=== PATIENT | female | born 1985 | race Caucasian/White ===

== ENCOUNTER → 2017-09-11 | Outpatient (CLI) | payer OTHER ==
[2017-09-11 15:55] VITALS: BMI 31.8
== END | disposition home or self-care (01) ==
LOC: MNTWWP 15:28
PROVIDERS: ATTEND Obstetrics & Gynecology
DX: E66.9 Obesity, unspecified (principal); Z68.33 Body mass index [BMI] 33.0-33.9, adult
CPT/HCPCS: 97802

== ENCOUNTER 2019-04-25 11:16 | Emergency (ER) | payer OTHER ==
[2019-04-25 11:24] VITALS: RESP 18
[2019-04-25] MEDS ORDERED: SODIUM CHLORIDE 0.9% 1,000 ML IV STA (11:41)
[2019-04-25] MEDS ORDERED: MORPHINE SULFATE 4 MG/ML SYRINGE IV STA (11:41)
--- NOTE | 2019-04-25 11:43 | ED ---
Chest Pain HPI - General Chief Complaint: Chest Pain Stated Complaint: Chest pain Time Seen by Provider: 04/25/19 11:32 Source: patient, RN notes reviewed, old records reviewed Mode of arrival: wheelchair Limitations: no limitations - History of Present Illness Initial Comments: This is a 33-year-old female the ER for evaluation patient resents today for evaluation chest pain left-sided chest patient began with for about a month. Pain is been manageable until yesterday and last night which became severe worse when she takes a deep breath. No history of smoking no history of COPD no history of asthma. No history of trauma. No fevers, no cough. No she does complain of shortness of breath especially when taking a deep breath. She does have chest wall tenderness underneath left breast. No difficulty eating no abdominal pain. No recent waking or weight loss. Patient takes no medications denies drugs denies smoking MD Complaint: chest pain (Sided) -: month(s) (Worse times the last day) Onset: during rest, during exertion, other (She takes deep breath) Pain Location: left chest Pain Radiation: none Severity: moderate Severity scale (1-10): 6 Quality: sharp Consistency: intermittent Improves With: nothing Worsens With: inspiration Anginal Symptoms: dyspnea Treatments Prior to Arrival: none - Related Data Home Medications Medication Instructions Recorded Confirmed Ibuprofen [Advil] 400 mg PO Q8HR PRN 04/25/19 04/25/19 Allergies Allergy/AdvReac Type Severity Reaction Status Date / Time No Known Allergies Allergy Verified 04/25/19 11:42 Review of Systems ROS Statement: Those systems with pertinent positive or pertinent negative responses have been documented in the HPI. ROS Other: All systems not noted in ROS Statement are negative. EKG Findings - EKG Comments: EKG Findings:: EKG shows sinus rhythm rate of 65, RI 176, QRS 82, QTc 409 Past Medical History Past Medical History: Skin Disorder History of Any Multi-Drug Resistant Organisms: None Reported Past Surgical History: Breast Surgery Past Anesthesia/Blood Transfusion Reactions: No Reported Reaction Past Psychological History: No Psychological Hx Reported Smoking Status: Never smoker Past Alcohol Use History: None Reported Past Drug Use History: None Reported - Past Family History Mother Family Medical History: Hyperlipidemia, Hypertension General Exam Limitations: no limitations General appearance: alert, in no apparent distress Head exam: Present: atraumatic, normocephalic, normal inspection Eye exam: Present: normal appearance, PERRL, EOMI. Absent: scleral icterus, conjunctival injection, periorbital swelling ENT exam: Present: normal exam, mucous membranes moist Neck exam: Present: normal inspection. Absent: tenderness, meningismus, lymphadenopathy Respiratory exam: Present: normal lung sounds bilaterally. Absent: respiratory distress, wheezes, rales, rhonchi, stridor Cardiovascular Exam: Present: regular rate, normal rhythm, normal heart sounds, other (Left breast wall tenderness). Absent: systolic murmur, diastolic murmur, rubs, gallop, clicks GI/Abdominal exam: Present: soft, normal bowel sounds. Absent: distended, tenderness, guarding, rebound, rigid Extremities exam: Present: normal inspection, full ROM, normal capillary refill. Absent: tenderness, pedal edema, joint swelling, calf tenderness Back exam: Present: normal inspection, other (rash to back, candidal) Neurological exam: Present: alert, oriented X3, CN II-XII intact Psychiatric exam: Present: normal mood, depressed, anxious Skin exam: Present: warm, dry, intact, normal color. Absent: rash Course Vital Signs 04/25/19 11:19 Temperature 98.1 F Pulse Rate 74 Respiratory 18 Rate Blood Pressure 104/70 O2 Sat by Pulse 97 Oximetry - Reevaluation(s) Reevaluation #1: 04/25/19 12:26 Medical record is reviewed Reevaluation #2: 04/25/19 13:09 Patient distress no specific pain currently Reevaluation #3: 04/25/19 13:09 Spoke with family and patient regarding findings, questions are answered Chest Pain MDM - MDM 23 female the ER for evaluation of chest pain left-sided chest pain. CT is negative for PE or significant pathology, does have mild pneumonitis. Patient given steroids here in the ER will continue on anti-inflammatories at home Disposition Clinical Impression: Atypical chest pain, Acute pneumonitis Disposition: HOME SELF-CARE Condition: Good Instructions (If sedation given, give patient instructions): Pneumonitis (ED) Is patient prescribed a controlled substance at d/c from ED?: No Referrals: Colin Carlin MD [Primary Care Provider] - 1-2 days
[2019-04-25 12:14] LABS: Basophils % (A) 1 %; Eosinophils # (A) 0.2 k/uL (0-0.7); Eosinophils % (A) 3 %; HCT 42.8 % (34.0-46.0); HGB 14.5 gm/dL (11.4-16.0); Lymphocytes # (A) 1.8 k/uL (1.0-4.8); Lymphocytes % (A) 26 %; MCH 30.7 pg (25.0-35.0); MCHC 33.8 g/dL (31.0-37.0); MCV 90.8 fL (80.0-100.0); Mean Platelet Volume 7.3; Monocytes # (A) 0.3 k/uL (0-1.0); Monocytes % (A) 4 %; Neutrophils # (A) 4.4 k/uL (1.3-7.7); Neutrophils % (A) 65 %; Platelet Count 268 k/uL (150-450); RBC 4.72 m/uL (3.80-5.40); RDW 15.4 % (11.5-15.5); WBC 6.8 k/uL (3.8-10.6)
[2019-04-25 12:23] LABS: ALT 34 U/L (9-52); AST 22 U/L (14-36); African American GFR (CKD) >90 (>60 ml/min/1.73 sqM); Albumin 4.3 g/dL (3.5-5.0); Alkaline Phosphatase 83 U/L (38-126); Anion Gap 9 mmol/L; Blood Urea Nitrogen 11 mg/dL (7-17); Calcium 9.5 mg/dL (8.4-10.2); Carbon Dioxide 25 mmol/L (22-30); Chloride 107 mmol/L (98-107); Glucose 85 mg/dL (74-99); Magnesium 2.1 mg/dL (1.6-2.3); Potassium 4.2 mmol/L (3.5-5.1); Sodium 141 mmol/L (137-145); Total Bilirubin 0.4 mg/dL (0.2-1.3); Total Protein 7.4 g/dL (6.3-8.2)
[2019-04-25 12:24] LABS: Partial Thromboplastin Time 24.6 sec (22.0-30.0); Prothrombin Time 10.7 sec (9.0-12.0)
--- NOTE | 2019-04-25 12:47 | CT ---
EXAMINATION TYPE: CT angio chest, CT abdomen pelvis w con DATE OF EXAM: 04/25/2019 12:25 PM COMPARISON: HISTORY: chest pain with respiration CT DLP: 1377.8 mGycm Automated exposure control for dose reduction was used. CONTRAST: CTA scan of the thorax as well as CT of the abdomen and pelvis is performed with IV Contrast, patient injected with 100 mL of Isovue 370, pulmonary embolism protocol. No wall contrast utilized.. FINDINGS: There are bilateral breast implants in place. There are scattered groundglass opacities in the periphery of both lungs slightly greater on the left than the right. This may represent pneumonitis. Hypersensitivity pneumonitis could give a similar ap pearance. There is no significant axillary, internal mammary, mediastinal or hilar adenopathy. There is no evidence of pulmonary embolus. The aorta is normal in caliber without evidence of dissection. Heart size upper limits of normal. There is no pleural or pericardial fluid. Within the abdomen, the liver and gallbladder appear normal. The spleen is mildly prominent measuring 13.4 cm. Both adrenal glands appear normal. There is a 1 cm low attenuating lesion in the upper pole of the left kidney likely reflecting a small cyst. The kidneys are otherwise normal. Pancreas is unremarkable. There is no significant para-aortic, iliac or inguinal adenopathy. The bladder is unremarkable. The uterus and ovaries are normal. There is follicular change within the ovaries. There is no significant diverticular change and there is no radiographic evidence of diverticulitis. The appendix is normal. The sigmoid colon and much of the descending colon is collapsed making assess ment of the bowel wall difficult. Small bowel loops are normal caliber. There is no free fluid and no free air. IMPRESSION: 1. SCATTERED GROUNDGLASS OPACITIES THROUGHOUT THE LUNGS MAY REPRESENT ALVEOLITIS. PNEUMONITIS IS ALSO A POSSIBILITY. 2. NO EVIDENCE OF PULMONARY EMBOLUS. 3. COLLAPSE OF MUCH OF THE LEFT SIDE OF THE COLON MAKES ASSESSMENT OF BOWEL WALL DIFFICULT. PLEASE CO RRELATE TO EXCLUDE COLITIS. 4. BORDERLINE SPLENOMEGALY. 5. PROBABLE CYST IN THE UPPER POLE OF THE LEFT KIDNEY.
[2019-04-25] MEDS ORDERED: DEXAMETHASONE SOD PHOSPHATE 10 MG/ML 1 ML VIAL IV STA (12:52)
[2019-04-25] MEDS ORDERED: KETOROLAC 30 MG/ML 1 ML VIAL IVP STA (12:52)
[2019-04-25] MEDS ORDERED: IPRATROPIUM-ALBUTEROL 3 ML NEB INHALATION STA (12:52)
[2019-04-25 13:59] VITALS: BP 108/72; TEMP 98
[2019-04-25 14:08] VITALS: PULSE 62
== END 2019-04-25 14:19 | disposition home or self-care (01) ==
LOC: EC 11:16
DX: J18.9 Pneumonia, unspecified organism (principal)
CPT/HCPCS: 36415; 94640; 93005; 83880; 80053; 83690; 83735; 84484; 85025; 85610; 85730; 71275; 74177; 99285; 96374; 96375 ×2; 96361 ×2; J2270; J1100; J1885; Q9967

== ENCOUNTER → 2019-05-05 | Outpatient (CLI) | payer OTHER ==
--- NOTE | 2019-05-05 12:35 | CONS ---
CONSULTATION DATE OF SERVICE: 05/05/2019 A 33-year-old lady who has been evaluated in the [facility] for multiple awakenings from sleep and feeling tiredness during the day. HISTORY OF PRESENT ILLNESS/SLEEP-WAKE EVALUATION: Patient's usual sleep schedule from around 10 p.m. to 6:30 a.m. and on some days is from around midnight until 8:30 a.m. She has to 2 small children at the house which I am subsequently sure sleep schedule related to their sleep schedule. They sleep in the same room and patient wakes up from sleep numerous time around 2 to 3 and after awakenings from sleep, she has difficulties to initiate sleep again. At the beginning of the night when she goes to bed, usually there are no problems with falling asleep, although she has TV set in bedroom. She has episodes of nocturia maybe once. No history of hypnagogic hallucinations, sleep paralysis. In the morning patient wakes up tired, feeling episodes of depression, worried about her sleep, has also episodes of anxiety. Usually does not take any naps. She drinks about one cup of coffee a day. [place] Sleepiness Scale is 2. PAST MEDICAL HISTORY: Positive for recent episode of chest pain. Evaluation in the hospital showed some abnormalities in her left lung according to the patient. PAST SURGICAL HISTORY: None. FAMILY HISTORY: Positive for hypertension. SOCIAL HISTORY: Negative for smoking or using alcohol. REVIEW OF SYSTEMS: Awakenings from sleep. It is difficult to initiate sleep. Again, tiredness and sleepiness in the morning. PHYSICAL EXAM: Presently without distress. BP 97/68, HR 73, RR 16, height 5, 3-3/4, weight 186.0 pounds, body mass index 32, temperature 97.9, oxygen saturation at room air 99%. OROPHARYNX: Wide pillars. ABDOMEN: Slightly obese. Neck Supple, no JVD. Thyroid is not palpable. LUNGS Clear to percussion and to auscultation. Good air exchange. No wheezing or rhonchi. HEART S1, S2 regular. No murmurs, gallops, or rubs. EXTREMITIES No clubbing or cyanosis. [employer] Awake, alert, and oriented X3. Cranial nerves 2 to 7 intact. There is no fasciculation or atrophy. noted. No focal deficits observed. IMPRESSION: 1. Multiple awakenings from sleep with difficulties to initiate sleep, again wide pillars, slightly small oropharyngeal space. Rule out obstructive sleep apnea. 2. Obesity, body mass index 32.0. 3. Recent episode of starting chest pain on the left side. Evaluation in the hospital according to patient, showed some enlargement of the left lung .. PLAN: 1. Polysomnography for evaluation of patient's breathing during sleep. 2. CPAP/BiPAP titration if sleep study confirms obstructive sleep apnea-hypopnea syndrome. 3. Preferable position during sleep on the side. 4. No driving if patient feels any sleepiness. 5. I will see patient for follow up visit to explain results of testing and following plan. Thank you very much for referring this patient for consultation. Sincerely, Bandar Sanchez MD, PhD, FAASM Diplomat of [place] [employer] [place] [employer] [facility] [place] [id number] / MEREDITH: [id number] /
== END ==
LOC: SLEEP 11:26
PROVIDERS: ATTEND Internal Medicine
DX: G47.8 Other sleep disorders (principal); E66.9 Obesity, unspecified; R07.9 Chest pain, unspecified; J98.4 Other disorders of lung; Z68.32 Body mass index [BMI] 32.0-32.9, adult
CPT/HCPCS: 99211

== ENCOUNTER → 2019-08-03 | Outpatient (CLI) | payer OTHER | END | disposition home or self-care (01) | LOC: CPPFTMAIN 12:35 | PROVIDERS: ATTEND Physician Assistant | DX: J45.909 Unspecified asthma, uncomplicated (principal) | CPT/HCPCS: 94060; 94726; 94729 ==

== ENCOUNTER 2020-03-21 10:06 | Emergency (ER) | payer OTHER ==
--- NOTE | 2020-03-21 10:31 | ED ---
Back Pain HPI - General Chief Complaint: Back Pain/Injury Stated Complaint: sciatic nerve Time Seen by Provider: 03/21/20 10:11 Source: patient, RN notes reviewed, old records reviewed Limitations: no limitations - History of Present Illness Initial Comments: 34-year-old female presents emergency Department chief complaint low back pain. Patient states she's had symptoms last 1 week. Patient states it is worse with certain movement better occasionally she stands. Patient also complains that she's had a headache which is not usual for her. Patient denies any bowel, bladder incontinence or retention of saddle anesthesias no abdominal pain. Denies any chance . Patient states that she does feel stiff. - Related Data Home Medications Medication Instructions Recorded Confirmed Ibuprofen [Advil] 400 mg PO Q8HR PRN 04/25/19 04/25/19 Previous Rx's Medication Instructions Recorded Nystatin 100,000Unit/gm Cream 1 applic TOPICAL BID #15 gram 04/25/19 [Mycostatin Cream] Hydrocodone/Acetaminophen [[place] 1 tab PO Q6HR PRN #12 tab 03/21/20 5-325] Ketorolac [Toradol] 10 mg PO Q8HR #15 tab 03/21/20 Orphenadrine [Norflex] 100 mg PO Q12H #14 tablet.er 03/21/20 predniSONE 50 mg PO DAILY #5 tab 03/21/20 Allergies Allergy/AdvReac Type Severity Reaction Status Date / Time No Known Allergies Allergy Verified 03/21/20 10:23 Review of Systems ROS Statement: Those systems with pertinent positive or pertinent negative responses have been documented in the HPI. ROS Other: All systems not noted in ROS Statement are negative. Past Medical History Past Medical History: Skin Disorder History of Any Multi-Drug Resistant Organisms: None Reported Past Surgical History: Breast Surgery Past Anesthesia/Blood Transfusion Reactions: No Reported Reaction Past Psychological History: No Psychological Hx Reported Smoking Status: Never smoker Past Alcohol Use History: None Reported Past Drug Use History: None Reported - Past Family History Mother Family Medical History: Hyperlipidemia, Hypertension General Exam Limitations: no limitations General appearance: alert, in no apparent distress Head exam: Present: atraumatic, normocephalic, normal inspection Eye exam: Present: normal appearance, PERRL, EOMI. Absent: scleral icterus, conjunctival injection, periorbital swelling ENT exam: Present: normal exam, normal oropharynx, mucous membranes moist, TM's normal bilaterally Neck exam: Present: normal inspection, full ROM. Absent: tenderness, meningismus, lymphadenopathy Respiratory exam: Present: normal lung sounds bilaterally. Absent: respiratory distress, wheezes, rales, rhonchi, stridor Cardiovascular Exam: Present: regular rate, normal rhythm, normal heart sounds. Absent: systolic murmur, diastolic murmur, rubs, gallop, clicks GI/Abdominal exam: Present: soft, normal bowel sounds. Absent: distended, tenderness, guarding, rebound, rigid Extremities exam: Present: full ROM, other (Lower extremity strength equal bilaterally color equal warmth neurovascular intact). Absent: tenderness Back exam: Present: full ROM, tenderness (Right lower lumbar), paraspinal tenderness, other (Pain with right straight leg raise). Absent: vertebral tenderness Neurological exam: Present: reflexes normal. Absent: motor sensory deficit Course Vital Signs 03/21/20 10:20 Temperature 97.8 F Pulse Rate 87 Respiratory 18 Rate Blood Pressure 141/77 O2 Sat by Pulse 98 Oximetry Medical Decision Making - Medical Decision Making Patient is neurovascularly intact, normal affect symptoms. She does have spring L4-L5. Symptoms consistent with lumbar region to Seek. Patient provided or steroids pain control muscle relaxers and follow-up with Dr. Burden. Disposition Clinical Impression: Migraine, Lumbar radiculopathy, right Disposition: HOME SELF-CARE Condition: Stable Instructions (If sedation given, give patient instructions): Acute Low Back Pain (ED), Lower Back Exercises (ED) Additional Instructions: Please return to the Emergency Department if symptoms worsen or any other concerns. Prescriptions: Hydrocodone/Acetaminophen [[place] 5-325] 1 tab PO Q6HR PRN #12 tab PRN Reason: Pain Orphenadrine [Norflex] 100 mg PO Q12H #14 tablet.er predniSONE 50 mg PO DAILY #5 tab Ketorolac [Toradol] 10 mg PO Q8HR #15 tab Is patient prescribed a controlled substance at d/c from ED?: Yes When asked, does pt state using other controlled substances?: No If prescribed controlled substance>3 days was MAPS reviewed?: Prescribed <3 Days If opioid is for acute pain is fill amount 7 days or less?: Yes If Rx opioid, was Start Talking consent form obtained?: Yes Referrals: Colin Carlin MD [Primary Care Provider] - 1-2 days Derrick Rizo DO [Doctor of Osteopathic Medicine] - 1-2 days Time of Disposition: 12:03
[2020-03-21 10:36] VITALS: TEMP 97.8
[2020-03-21] MEDS ORDERED: KETOROLAC 15 MG/ML 1 ML VIAL IM STA (10:40)
[2020-03-21] MEDS ORDERED: CYCLOBENZAPRINE 10 MG TAB PO STA (10:40)
--- NOTE | 2020-03-21 11:32 | XR ---
EXAMINATION TYPE: XR lumbosacral spine min 4V DATE OF EXAM: 03/21/2020 CLINICAL HISTORY: Pain for one week. Right-sided SI joint pain. TECHNIQUE: Frontal, lateral, and oblique images of the lumbar spine are obtained. COMPARISON: None FINDINGS: There are 5 lumbar type vertebral bodies identified. The lumbar spine shows satisfactory alignment without evidence of acute fracture or dislocation. Vertebral body heights and disk space he ights are within normal limits. There is mild degenerative endplate spurring, most notably at L4-5. The oblique images appear within normal limits. The overlying soft tissue appears unremarkable. IMPRESSION: No acute fracture or dislocation is seen in the lumbar spine.
--- NOTE | 2020-03-21 11:51 | CT ---
EXAMINATION TYPE: CT brain wo con DATE OF EXAM: 03/21/2020 COMPARISON: None. HISTORY: headache CT DLP: 1095.4 mGycm. Automated Exposure Control for Dose Reduction was Utilized. TECHNIQUE: CT scan of the head is performed without contrast. FINDINGS: There is no acute intracranial hemorrhage, mass effect, or midline shift identified. The ventricles and sulci are within normal limits in size. Huddleston-white matter differentiation is maintain ed. The globes are intact and the visualized sinuses are clear. IMPRESSION: No acute intracranial hemorrhage or midline shift is seen.
[2020-03-21 12:07] VITALS: BP 120/78; PULSE 78; RESP 16
== END 2020-03-21 12:06 | disposition home or self-care (01) ==
LOC: EC 10:06
DX: M54.16 Radiculopathy, lumbar region (principal); G43.909 Migraine, unspecified, not intractable, without status migrainosus
CPT/HCPCS: 72110; 70450; 99284; 96372; J1885